=== PATIENT | male | born 1945 | race Caucasian/White ===

== ENCOUNTER 2016-07-13 06:48 | Day surgery (SDC) | payer OTHER ==
[2016-07-02 09:43] VITALS: BMI 23.6
[2016-07-13] MEDS ORDERED: ceFAZolin IV 2 gm in Dextrose 1 GM/50 ML BAG IVPB ONE (07:46)
[2016-07-13] MEDS ORDERED: EPINEPHrine 1:1000 Nasal Sol(30mL) ONE (07:46)
[2016-07-13] MEDS ORDERED: Propofol 10 mg/ml Inj (20 ML) ONE (07:55)
[2016-07-13] MEDS ORDERED: Midazolam 2 MG/2 ML VIAL ONE (07:55)
[2016-07-13] MEDS ORDERED: Lactated Ringer's 1,000 ML IV ONE ×2 (08:22→11:09)
[2016-07-13] MEDS ORDERED: ceFAZolin IV 1 gm in Dextrose 2 GM/100 ML BAG IVPB ONE (13:11)
[2016-07-13] MEDS ORDERED: Neostigmine Methylsulfate 3mg/3ml Syringe IV ONE (13:19)
[2016-07-13] MEDS ORDERED: Morphine 4 MG/ML VIAL ONE ×2 (13:35→13:56)
--- NOTE | 2016-07-13 14:12 | PCM.SURG1 ---
Surgeon's Initial Post Op Note - Surgeon's Notes Surgeon: Elsy Dior MD [employer] Crewmember: Brynn Zarate PA-C Type of Anesthesia: General Endo Anesthesia Administered By: Dr. Holcomb Pre-Operative Diagnosis: Right shoulder rotator cuff tear, AC joint arthropathy , biceps tendinitis Operative Findings: same Post-Operative Diagnosis: as above. SLAP tear Operation Performed: 1. Right shoulder arthroscopic and mini open rotator cuff repair. 2. Arthroscopic labral repair. 3. Arthroscopic extension debridement. 4. Subacromial decompression and acromioplasty. 5. Arthroscopic Distal clavicle excision. 6. open biceps tenodesis Specimen/Specimens Removed: none Estimated Blood Loss: EBL {In ML}: 3 Blood Products Given: N/A Drains Used: No Drains Post-Op Condition: Fair Date of Surgery/Procedure: 07/13/16 Time of Surgery/Procedure: 14:12
[2016-07-13] MEDS ORDERED: Oxycodone/Acetaminophen 5/325 mg Tab PO PRN (14:13)
[2016-07-13] MEDS ORDERED: HYDROmorphone 0.5 mg/0.5 ml ISec IVP PRN (14:29)
[2016-07-13] MEDS ORDERED: Bupivacaine HCl 0.25% PF (10 ml) Inj ONE ×2 (14:35→14:36)
[2016-07-13] MEDS ORDERED: HYDROmorphone 0.5 mg/0.5 ml ISec IVP ONE (16:47)
--- NOTE | 2016-07-13 17:14 | PCM.ANESB1 ---
Interscalene Block - Brachial Plexus Date of Procedure: 07/13/16 Anesthesiologist: Geovany Pre-Procedure Diagnosis: s/p right rotator cuff repair and shoulder arthroscopy Post-Procedure Diagnosis: s/p right rotator cuff repair and shoulder arthroscopy Procedure Performed: Interscalene Block of Brachial Plexus Right - Procedure Interscalene Block of Brachial Plexus: This procedure was explained to the patient that it is for post-operative pain management. Consent was obtained after a thorough discussion with the patient regarding the benefits and possible complications of local anesthetic block of the Brachial Plexus at the Interscalene area. The patient was brought to the PACU postoperatively and standard monitors were applied. Time out was held with the circulating nurse to confirm the correct surgery and appropriate block. After applying Oxygen by nasal cannula, the patient's head was gently rotated to the left and the anterior scalene groove was carefully palpated. The ultrasound transducer was then applied to the skin in the transverse plane and the brachial plexus was visualized lateral to the carotid artery and in between the anterior and middle scalene muscles. After identification,the anterior lateral portion of the neck was prepped with Chloraprep. At this point, a # 22 gauge Stimuplex 2 inches insulated needle was inserted into the interscalene groove and directed in a caudal and midline direction. The needle was inserted lateral to the ultrasound transducer in-plane towards the brachial plexus in a [id number] direction. Needle advancement was performed carefully under direct ultrasound visualization. After repeated negative aspiration,20 cc of_0.25% bupivacaine was injected. Under ultrasound guidance the local anesthetics were observed surrounding the roots of the brachial plexus. The needle was removed intact and sterile dressing was applied. The patient had stable vital signs, was conscious and in no apparent distress. The patient tolerated the interscalene block of the bracheal plexus well with stable vital signs and good analgesia.
--- NOTE | 2016-07-13 17:24 | OP ---
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 then also passed through the biceps tendon and secondary knot and fixation was placed as well. Excess suture was removed and the wound was copiously irrigated and good hemostasis was achieved. Care was taken to ensure that no neurovascular structures, including the musculocutaneous nerve was not damaged. Deep tissue was reapproximated with #1 Vicryl suture followed by 2-0 Vicryl suture for subcutaneous tissue followed by 3-0 Monocryl suture for skin. Sterile dressings were applied on all wounds and the right shoulder was placed in a shoulder immobilizer sling prefitted for the patient during his preop visit and provided by my office. The patient was then brought into the supine position and transferred safely to a stretcher, he was then extubated without any complication. He was then transported to PACU in stable condition and tolerated the procedure well. DISPOSITION: The patient will be discharged home once he has recovered from anesthesia and deemed safe for discharge. He will receive a regional block from anesthesia in PACU. He is instructed to keep the sling immobilizer on at all times and the dressings clean, dry, and intact until he follows up in the office. He has been given a prescription for Percocet for pain control. He is instructed to be strict non-weight bearing right upper extremity. He will contact me directly with any questions or concerns. He has a postop appointment scheduled next week at [facility] and I will see him then. Isabella Ruiz MD cc: [id number] TT: 07/13/2016 17:24:03 mn [id number]
[2016-07-13 18:00] VITALS: RESP 18; O2SAT 96
[2016-07-13 18:32] VITALS: BP 127/70; PULSE 81; TEMP 97.8
== END 2016-07-13 18:25 | disposition home or self-care (01) ==
LOC: C.SDS 06:48
PROVIDERS: ATTEND Student in an Organized Health Care Education/Training Program
DX: M75.121 Complete rotator cuff tear or rupture of right shoulder, not specified as traumatic (principal); M75.41 Impingement syndrome of right shoulder; M75.21 Bicipital tendinitis, right shoulder; M75.51 Bursitis of right shoulder
CPT/HCPCS: 24340; 29807; 29826; 29827; C1713; J0690; J1170; J2001; J2250; J2270; J2405; J2704; J2710; J3010; J7120